=== PATIENT | female | born 1955 | race Caucasian/White ===

== ENCOUNTER 2019-01-01 15:19 | Emergency (ER) | payer MEDICARE, BC ==
[2019-01-01] MEDS ORDERED: oxyCODONE/Acetamin 5/325 MG* TAB PO ONE (17:17)
[2019-01-01] MEDS ORDERED: Tetan/Diph/Pertus SYR(Tdap)* 0.5 ML SYR(BOOSTRIX) use SYR IM ONE (17:52)
[2019-01-01] MEDS ORDERED: Cephalexin CAP* 500 MG PO ONE (19:21)
--- NOTE | 2019-01-01 19:28 | ED ---
Laceration/Wound HPI - HPI Summary HPI Summary: Complains of amputation of third digit of left hand distal to fingernail. Patient states she was cutting vegetables with a knife when it happened. Denies any other pain, injury or symptoms. No anti-coag. Tetanus status up-to- date. Patient on immunosuppressants for RA. - History of Current Complaint Stated Complaint: LACERTATION TO HER FINGER PER PT Time Seen by Provider: 01/01/19 17:46 Hx Obtained From: Patient Mechanism of Injury: Sharp/Blunt Trauma Onset Severity: Severe Current Severity: Severe Pain Intensity: 9 Pain Scale Used: 0-10 Numeric Associated Signs & Symptoms: Pain - Allergy/Home Medications Allergies/Adverse Reactions: Allergies Allergy/AdvReac Type Severity Reaction Status Date / Time lactose Allergy Diarrhea Verified 01/01/19 19:33 metronidazole Allergy Unknown Verified 01/01/19 19:33 Reaction Details Sulfa (Sulfonamide Allergy Diarrhea Verified 01/01/19 19:33 Antibiotics) PMH/Surg Hx/FS Hx/Imm Hx Endocrine/Hematology History: Denies: Hx Anticoagulant Therapy, Hx Diabetes, Hx Anemia Cardiovascular History: Denies: Hx Hypertension GI History: Denies: Hx Jaundice History: Denies: Hx Renal Disease Musculoskeletal History: Reports: Hx Osteoporosis Sensory History: Denies: Hx Legally Blind Opthamlomology History: Denies: Hx Eye Prosthesis EENT History: Denies: Hx Deafness - Surgical History Surgery Procedure, Year, and Place: ,. TOTAL RIGTH HIP 1998. Carpal tunnel surgery 2004. trigger finger release 2004 Infectious Disease History: No Infectious Disease History: Denies: Traveled Outside the [place] in Last 30 Days - Family History Known Family History: Positive: Non-Contributory - Social History Alcohol Use: unk Substance Use Type: Reports: None Smoking Status (MU): Unknown if Ever Smoked Review of Systems Constitutional: Negative Eyes: Negative ENT: Negative Cardiovascular: Negative Respiratory: Negative Gastrointestinal: Negative Genitourinary: Negative Musculoskeletal: Negative Skin: Negative Neurological: Negative Psychological: Normal All Other Systems Reviewed And Are Negative: Yes Physical Exam - Summary Physical Exam Summary: Amputation of distal tip of third digit of left hand distal to fingernail. No nailbed involvement. No bony exposure. Full range of motion of joints of third digit. Triage Information Reviewed: Yes Vital Signs On Initial Exam: Initial Vitals Temp Pulse Resp BP Pulse Ox 97.4 F 82 20 0/0 97 01/01/19 15:20 01/01/19 15:20 01/01/19 15:20 01/01/19 15:20 01/01/19 15:20 Vital Signs Reviewed: Yes Appearance: Positive: Well-Appearing, Well-Nourished Skin: Positive: Warm Head/Face: Positive: Normal Head/Face Inspection Eyes: Positive: Normal Neck: Positive: Supple Respiratory/Lung Sounds: Positive: Clear to Auscultation Cardiovascular: Positive: Normal Abdomen Description: Positive: Nontender Musculoskeletal: Positive: Normal Neurological: Positive: Normal Psychiatric: Positive: Normal AVPU Assessment: Alert - [place] Coma Scale Best Eye Response: 4 - Spontaneous Best Motor Response: 6 - Obeys Commands Best Verbal Response: 5 - Oriented Coma Scale Total: 15 Diagnostics - Vital Signs Vital Signs Temp Pulse Resp BP Pulse Ox 01/01/19 17:20 20 01/01/19 15:20 97.4 F 82 20 0/0 97 - Laboratory Lab Statement: Any lab studies that have been ordered have been reviewed, and results considered in the medical decision making process. Laceration Repair Course/Dx - Course Course Of Treatment: Complains of amputation of third digit of left hand distal to fingernail. Patient states she was cutting vegetables with a knife when it happened. Denies any other pain, injury or symptoms. No anti-coag. Tetanus status up-to-date. Patient on immunosuppressants for RA. Vital signs within normal limits. Wound covered with Xeroform and wrapped. No indication for suturing. - Clinical Impression Provider Diagnoses: Laceration Discharge - Sign-Out/Discharge Documenting (check all that apply): Patient Departure Patient Received Moderate/Deep Sedation with Procedure: No - Discharge Plan Condition: Stable Disposition: HOME Prescriptions: Cephalexin CAP* [Keflex CAP*] 500 mg PO TID 5 Days #15 cap Patient Education Materials: [employer] (ED) Referrals: Maame Guerrero MD [Primary Care Provider] - Additional Instructions: Take antibiotics as directed. Keep wound covered with dressing for 2 days. Then remove dressing and wash with warm water and soap. Then keep clean and dry and protected until healed. Follow-up with primary care. - Billing Disposition and Condition Condition: STABLE Disposition: Home - Attestation Statements Provider Attestation: I am administratively signing this document. I was available for consultation for this patient. I did not evaluate the patient or participate in any medical decision making or disposition decisions unless I am specifically named in the chart as having consulted on the patient. If I have consulted on the patient, please see my own ED note on the patient encounter. Ezequiel Ramirez MD
[2019-01-01 20:51] VITALS: BP 143/72
== END 2019-01-01 20:50 | disposition home or self-care (01) ==
LOC: ED 15:19
DX: S61.213A Laceration without foreign body of left middle finger without damage to nail, initial encounter (principal); W26.0XXA Contact with knife, initial encounter; Y93.G1 Activity, food preparation and clean up; Y92.9 Unspecified place or not applicable; Z96.651 Presence of right artificial knee joint; Z88.2 Allergy status to sulfonamides; Z88.1 Allergy status to other antibiotic agents; Z91.011 Allergy to milk products
CPT/HCPCS: 90471; 99282; A9270-GY